=== PATIENT | female | born 1960 | race Caucasian/White ===

== ENCOUNTER 2018-11-08 08:55 | Inpatient (IN) | payer OTHER ==
[~2018-11-08] VITALS: Ht 160 cm; Wt 111.1 kg
[2018-11-08 10:48] VITALS: BP 134/81
[2018-11-08] MEDS ORDERED: ONDANSETRON HCL4 M2 PO (11:56)
[2018-11-08] MEDS ORDERED: KCL IV (12:01)
[2018-11-08] MEDS ORDERED: DILAUDID1 MG/1 ML IV PUSH (12:04)
[2018-11-08] MEDS ORDERED: HYDROCHLOROTHIA25 M2 PO ×2 (12:42→12:43)
[2018-11-08] MEDS ORDERED: IPRATROPIUM BRO15 ML NASAL (12:45)
[2018-11-08] MEDS ORDERED: LEVOTHYROXINE100 MCG PO (12:48)
[2018-11-08] MEDS ORDERED: MOBIC15 MG PO (12:50)
[2018-11-08] MEDS ORDERED: LOVASTAT20 PO (12:50)
[2018-11-08] MEDS ORDERED: LOPRESSOR50 MG PO (12:52)
[2018-11-08] MEDS ORDERED: SINGULAIR 10 MG10 M1 PO (12:53)
[2018-11-08] MEDS ORDERED: OMEPRAZOLE40 MG PO (12:54)
[2018-11-08] MEDS ORDERED: OXYBUTYNIN 5 MG5 M2 PO (12:55)
[2018-11-08] MEDS ORDERED: SYNTHROID100 MC1 PO (13:08)
[2018-11-08] MEDS ORDERED: IBUPROFEN 200200 M1 PO (13:09)
[2018-11-08] MEDS ORDERED: TYLENOL325 M1 PO (13:09)
[2018-11-08 13:48] LABS: TOTAL PROTEIN 7.2 g/dL (6.4-8.2)
[2018-11-08 14:13] LABS: TSH 0.889 uIU/mL (0.358-3.740)
[2018-11-08 15:32] VITALS: BP 124/78
--- NOTE | 2018-11-08 16:50 | NUR ---
PT ADMITTED TO ROOM AT 1010 PT IS ALERT XS 4. ASSESSMENT COMPLETED. IV NURSE CHANGED IV ACSESS SITE. HAS NG TUBE TO SUCTION. SCD'S ORDERED IN ROOM. DR LYLES HERE TO SEE PATIENT. HE ALSO LOOKED AT PATIENT'S ORDERS FROM [facility]. HAS IV FLUIDS INFUSING DR LYLES ORDERED. IN ISOLATION FOR C-DIIFF STOOL SENT TO LAB. PT W/O PAIN OR RESP DISTRESS AT THIS TIME.
[2018-11-08 19:40] VITALS: BP 124/78
[2018-11-09 03:00] VITALS: BP 121/83
[2018-11-09 03:54] LABS: CALCIUM 7.7 mg/dL (8.5-10.1); CREATININE 0.7 mg/dL (0.6-1.0); MAGNESIUM 1.8 mg/dL (1.8-2.4)
[2018-11-09 03:56] LABS: HEMATOCRIT 34.3 % (37.0-47.0); HEMOGLOBIN 11.5 gm/dL (12.0-15.0); MCH 30.2 pg (26.0-34.0); MCHC 33.3 g/dL (28.0-37.0); MCV 90.6 fL (80.0-100.0); RBC 3.79 mil/uL (4.20-5.00); RDW 15.1 % (10.5-14.5)
[2018-11-09 04:02] LABS: POTASSIUM 2.8 mmol/L (3.5-5.1)
--- NOTE | 2018-11-09 04:23 | NUR ---
ASSUMED PT CARE 1900. PT ALERT AND ORIENTED. FAMILY AT BEDSIDE. DISCUSSED CURRENT PLAN OF CARE, REINFORCED EDUCATION. SPECIAL CONTACT ISOLATION MAINTAINED. IV DRESSING C/D/I, NO SIGNS OF INFILTRATION. NG TUBE IN PLACE, FUNCTIONING WELL. PT REPORTS SOME NAUSEA AND PAIN, WELL CONTROLLED WITH MEDICATION. PT NPO PER ORDERS, SWABS PROVIDED. WILL CONTINUE POC UNTIL EOS.
[2018-11-09 07:25] VITALS: BP 106/70
--- NOTE | 2018-11-09 12:42 | NUR ---
INITIAL ASSESSMENT: Pt evaluated for d/c planning needs. Reviewed chart and spoke with nurse and pt. Pt is alert and oriented. Pt lives in house with son and was independent with ADL's prior to admission to the hospital. Pt uses no DME and has not had home health in the past. Pt plans on returning home on d/c from hospital. Will remain available to assist as needed.
[2018-11-09 15:30] VITALS: BP 117/64
--- NOTE | 2018-11-09 17:23 | NUR ---
PT ASSESSED AT START OF SHIFT. PT HAS NOT HAD A BM SINCE SPECIMEN SENT TO LAB FROM THE ER. ISOLATION DC'D FOR CDIFF WAS NEG. NG TO LIS W/ GR/BR OUTPUT. NAUSEA BETTER BUT STILL HAVING SOME INTERMITTENT ABD PAIN. NOW PASSING FLATUS. ENC TO AMBULATE THE HALLS TO HELP PASS THE AIR.
[2018-11-09 19:19] VITALS: BP 132/72
[2018-11-10 04:04] VITALS: BP 115/66
--- NOTE | 2018-11-10 05:16 | NUR ---
ASSUMED PT CARE 1899. PT ALERT AND ORIENTED. VSS. IV DRESSING C/D/I, NO SIGNS OF INFILTRATION. NG SUCTION IN PLACE SET TO LIS, BROWNISH COLORED DRAINAGE. PT UP TO WALK LOU X2. PT SAT IN CHAIR FOR A COUPLE HOURS. WILL CONTINUE POC UNTIL EOS.
[2018-11-10 05:35] LABS: HEMATOCRIT 33.8 % (37.0-47.0); HEMOGLOBIN 11.5 gm/dL (12.0-15.0); MCH 30.5 pg (26.0-34.0); MCV 89.7 fL (80.0-100.0); RBC 3.77 mil/uL (4.20-5.00); WBC 7.4 thou/uL (4.0-11.0)
[2018-11-10 05:45] LABS: CALCIUM 8.3 mg/dL (8.5-10.1); CREATININE 0.6 mg/dL (0.6-1.0); MAGNESIUM 1.9 mg/dL (1.8-2.4); POTASSIUM 3.7 mmol/L (3.5-5.1)
[2018-11-10 07:28] VITALS: BP 106/56
--- NOTE | 2018-11-10 14:31 | NUR ---
PT. ADMITTED TO HOSPITAL FOR SBO. COMPLAINING THROUGHOUT THE DAY OF NAUSEA AND VOMITING. PT. IS EXPELLING GAS, NO BM YESTERDAY OR TODAY. AMBULATED IN THE HALLWAY 4 LAPS WITH NO ASSISTANCE. AMBULATED TO CHAIR. PT. CONTINUES TO HAVE NG IN PLACE, NG RETURNS BROWN LIQUID. PT. WENT TO XRAY WHERE THE SBO IS SEEMING TO RESOLVE SOME.
--- NOTE | 2018-11-10 14:43 | NUR ---
I have reviewed and concur with student documentation.
--- NOTE | 2018-11-10 18:36 | NUR ---
PT PROGRESSING SOME. ABD XRAY IMPROVING. NG CLAMPED AT 1700. PT UNDERSTANDS TO INFORM RN IF INCREASED ABD PAIN OR NAUSEA. PASSING FLATUS AND AMBULATING SEVERAL TIMES IN HALLS. DOES HAVE SINUS PROBLEMS W/DRAINAGE MAKING SOME NAUSEA BUT IS DIFFERENT THAN PREVIOUS NAUSEA. WILL HAVE CT ENEROGRAPHY IN AM.
[2018-11-10 20:00] VITALS: BP 138/73
[2018-11-11 04:30] VITALS: BP 130/66
--- NOTE | 2018-11-11 05:12 | NUR ---
ASSUMED PT CARE AROUND 1900. A&OX4. DENIES ANY ABDOMINAL PAIN. NGT REMAINS CLAMPED. UP AD JOSEPH AROUND THE ROOM. PT SAT UP IN CHAIR AT BEGINNING OF SHIFT. PT SLEPT MOST OF THE NIGHT. RESP EVEN AND UNLABORED. NO MAJOR COMPLAINTS THIS SHIFT. PT STATES SHE IS PASSING FLATUS, BUT NO BM YET. PROGRESSING TOWARD POC GOALS. WILL CONTINUE TO MONITOR FURTHER.
[2018-11-11 05:33] LABS: HEMATOCRIT 33.3 % (37.0-47.0); HEMOGLOBIN 11.3 gm/dL (12.0-15.0); MCH 30.2 pg (26.0-34.0); MCHC 33.8 g/dL (28.0-37.0); MCV 89.2 fL (80.0-100.0); RBC 3.73 mil/uL (4.20-5.00); RDW 14.3 % (10.5-14.5); WBC 9.1 thou/uL (4.0-11.0)
[2018-11-11 05:42] LABS: CALCIUM 7.9 mg/dL (8.5-10.1); CREATININE 0.5 mg/dL (0.6-1.0); MAGNESIUM 1.7 mg/dL (1.8-2.4); POTASSIUM 3.8 mmol/L (3.5-5.1)
--- NOTE | 2018-11-11 07:25 | NUR ---
BG LOW THIS AM. PT STILL NPO. NOTIFIED INSPECTOR AND CLIPPER WASTE DISPOSAL LEAKAGE TESTER FOR HOSPITALIST. ORDER RECEIVED. 10/14 AMP D50 GIVEN ORDERED. BG IMPROVED. UPDATED ONCOMING NURSE.
[2018-11-11 07:50] VITALS: BP 144/76
--- NOTE | 2018-11-11 10:48 | NUR ---
PATIENT DRANK 3 BOTTLES OF CONTRAST AND WENT DOWN FOR CT SCAN.
--- NOTE | 2018-11-11 11:25 | NUR ---
PT'S NG TUBE DC AN PT PUT ON CLEAR LIQUIDS.
--- NOTE | 2018-11-11 12:30 | NUR ---
Assess due to high BMI 43=extreme class III obesity. Admit with bowel obstruction. Chart reviewed, NGT discontinued and diet advanced to clear liquids. Low nutrition risk
--- NOTE | 2018-11-11 14:12 | NUR ---
PT TO MOVE TO [facility], ROOM [address] PASTRANA ON UNIT AND STATED OKAY TO MOVE PATIENT. PT TO CONTINUE WITH IV FLUIDS ORDERED. OCCULT BLOOD LAB IS NEGATIVE .
--- NOTE | 2018-11-11 15:04 | NUR ---
REC PT FROM UNIT NEEDLE PROCESS FELT GOODS SUPERVISOR, SCANT REPORT, PT FILLING IN WELL MED CHART, PLACED WARM BLANKETS ON HER, WILL ASSESS, TAKE VS, AND CONTINUE POC. GAVE HER INTO TO ROOM/CALL LIGHT, AND ENCOURAGED HER TO CALL FOR ANY NEEDS
[2018-11-11 15:27] VITALS: BP 126/63
[2018-11-11 19:50] VITALS: BP 121/69
--- NOTE | 2018-11-12 05:21 | NUR ---
PATIENT ALERT AND ORIENTED X4. DENIES PAIN. UP TO BATHROOM BY SELF. AWAKE MOST OF NIGHT.
[2018-11-12 06:41] LABS: HEMATOCRIT 33.9 % (37.0-47.0); HEMOGLOBIN 11.8 gm/dL (12.0-15.0); MCH 30.8 pg (26.0-34.0); MCHC 34.9 g/dL (28.0-37.0); MCV 88.1 fL (80.0-100.0); RBC 3.84 mil/uL (4.20-5.00); RDW 14.1 % (10.5-14.5); WBC 7.8 thou/uL (4.0-11.0)
[2018-11-12 06:52] LABS: CALCIUM 8.4 mg/dL (8.5-10.1); CREATININE 0.6 mg/dL (0.6-1.0); MAGNESIUM 1.6 mg/dL (1.8-2.4); POTASSIUM 3.3 mmol/L (3.5-5.1)
[2018-11-12 08:00] VITALS: BP 119/67
--- NOTE | 2018-11-12 10:22 | NUR ---
HAS STARTED REGULAR DIET. SO FAR SO GOOD. IF SHE TOLERATES IT SHE MAY BE DISCHARGED TO HOME. WILL CONTINUE TO MONITOR.
--- NOTE | 2018-11-12 10:28 | NUR ---
SW reviewed chart and spoke with nursing and attending physician. Pt was transferred to [facility] from and is progressing towards goals for discharge. Plan is for pt to d/c home when medically stable. JOSE is following to assist as needed with discharge planning.
[2018-11-12 14:04] VITALS: BP 119/67
== END 2018-11-12 15:57 | disposition home or self-care (01) | DRG 389 ==
LOC: 4E 08:55 → SICU 10:27
PROVIDERS: ADMIT Internal Medicine
PROC: 0D9670Z Drainage of Stomach with Drainage Device, Via Natural or Artificial Opening (ICD-10-PCS; principal; 2018-11-08)
DX: K56.609 Unspecified intestinal obstruction, unspecified as to partial versus complete obstruction (principal); J98.11 Atelectasis; I10 Essential (primary) hypertension; E78.5 Hyperlipidemia, unspecified; E03.9 Hypothyroidism, unspecified; E78.00 Pure hypercholesterolemia, unspecified; K21.9 Gastro-esophageal reflux disease without esophagitis; E87.6 Hypokalemia; Z90.710 Acquired absence of both cervix and uterus; Z88.2 Allergy status to sulfonamides; Z91.040 Latex allergy status; Z91.010 Allergy to peanuts; Z79.899 Other long term (current) drug therapy
CPT/HCPCS: 10783; 15002